=== PATIENT | male | born 2000 | race African-American/Black ===

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

== ENCOUNTER 2024-01-19 05:33 | Emergency (ER) | payer SELFPAY ==
[2024-01-19] MEDS ORDERED: Amoxicillin/Potassium Clav 875 MG TAB ONE (06:27)
[2024-01-19] MEDS ORDERED: Ibuprofen 800 MG TAB ONE (06:27)
[2024-01-19] MEDS ORDERED: Dexamethasone 4 MG TAB ONE (06:30)
== END 2024-01-19 06:38 | disposition home or self-care (01) ==
LOC: ERS 05:33
DX: J02.0 Streptococcal pharyngitis (principal)
CPT/HCPCS: 87081; 87430; 99283; J8540

== ENCOUNTER 2024-01-22 12:21 | Emergency (ER) | payer SELFPAY ==
[2024-01-22 15:06] LABS: MONO NEGATIVE CONTROL ZONE White (Negative) (White); MONO POSITIVE CONTROL Pink Line (Positive) (PINK/RED); Mononucleosis POSITIVE (NEGATIVE)
[2024-01-22] MEDS ORDERED: methylPREDNISolone Sod Succ/PF 125 MG/2 ML VIAL ONE (15:37)
== END 2024-01-22 16:06 | disposition home or self-care (01) ==
LOC: ERS 12:21
DX: B27.90 Infectious mononucleosis, unspecified without complication (principal)
CPT/HCPCS: 36415; 86308; 87428; 96372; 99282; J2919